=== PATIENT | female | born 1955 | race African-American/Black ===

== ENCOUNTER 2025-05-20 12:33 | Emergency (ER) | payer MEDICAID, OTHER ==
[~2025-05-20] VITALS: Ht 157.5 cm; Wt 64.0 kg
[2025-05-20 12:36] VITALS: O2SAT 100
[2025-05-20] MEDS: MECLIZINE 25MG TABLET PO ONE (13:07)
[2025-05-20] MEDS: SODIUM CHLORIDE 0.9% 1,000 ML IV ONE (13:07)
[2025-05-20 13:42] LABS: BASOPHILS % 0.2 % (0.0-2.0); EOSINOPHILS % 0.5 % (0.0-5.0); HEMATOCRIT. 37.7 % (36.0-48.0); HEMOGLOBIN. 12.5 g/dL (12.0-16.0); LYMPHOCYTES % 29.9 % (20.0-50.0); MEAN PLATELET VOLUME 8.0 fl (7.4-10.4); MONOCYTES % 6.3 % (2.0-8.0); NEUTROPHILS % 63.1 % (40.0-76.0); PLATELET 182 x1000/uL (130-400); RED BLOOD CELL COUNT 3.86 mill/uL (4.2-5.4); RED CELL DISTRIBUTION WIDTH 14.3 % (11.6-14.6)
[2025-05-20 13:53] LABS: CREATININE 1.3 mg/dL (0.6-1.0); ETHANOL BLOOD < 10 mg/dL (<10); TROPONIN I HIGH SENSITIVITY < 4 ng/L (3.0-34); UREA NITROGEN BLOOD 18 mg/dL (9-23)
[2025-05-20 13:55] LABS: ASPARTATE AMINOTRANSFERASE 22 IU/L (<34); BILIRUBIN DIRECT 0.2 mg/dL (<=3.0); BILIRUBIN TOTAL 0.8 mg/dL (0.1-1.0); PROTEIN TOTAL 7.5 g/dL (6.0-8.3)
[2025-05-20] MEDS: AMLODIPINE 10MG TABLET PO NR (14:30)
[2025-05-20] MEDS: SPIRONOLACTONE 25MG TABLET PO SCH (14:30)
[2025-05-20] MEDS ORDERED: MECL-299 MT (15:50)
[2025-05-20 16:23] VITALS: BP 143/66; PULSE 75; RESP 16; TEMP 36.8; O2SAT 99
== END 2025-05-20 16:26 | disposition home or self-care (01) ==
LOC: ER 12:33
DX: R42 Dizziness and giddiness (principal); E11.9 Type 2 diabetes mellitus without complications; I10 Essential (primary) hypertension; I67.82 Cerebral ischemia; Z88.5 Allergy status to narcotic agent
CPT/HCPCS: 80076; 80048; 80320; 85025; 84484; 36415; 70450; 93005; 96360; 99284; J8597; A4606; G0480